=== PATIENT | female | born 1930 | race Caucasian/White ===

== ENCOUNTER 2016-08-05 18:30 | Emergency (ER) | payer MEDICARE, BC ==
--- NOTE | ~2016-08-05 | EKG ---
PATIENT: SIGRID LANGLEY UNIT #: [id number] Ventricular Rate: 72 BPM Atrial Rate: 72 BPM P-R Interval: 142 ms QRS Duration: 92 ms Q-T Interval: 390 ms QTC Calculation(Bezet): 427 ms P [place]: 64 degrees Calculated R [place]: -6 degrees Calculated T [place]: 76 degrees Diagnosis Line: Normal sinus rhythm Diagnosis Line: Normal ECG Diagnosis Line: When compared with ECG of 18-JAN-2012 16:01, Diagnosis Line: No significant change was found Diagnosis Line: Confirmed by TONI MARK MD ([id number]) on Diagnosis Line: 08/11/2016 8:49:37 AM INTERPRETING MD: JAS KNOWLES
--- NOTE | ~2016-08-05 | CT18 ---
[facility]. [facility] A Service of [facility] & [facility] / [facility] RADIOLOGY TEXT RESULTS PATIENT: SIGRID LANGLEY LOCATION: SED : 31 UNIT #: [id number] AGE: [address]: Tony Ren MD SEX: F ORDER DR: [id number] [address] [address] [id number] E MR#: [id number] Acc #: [id number] NAME: SIGRID LANGLEY. : 1930 SEX: F STUDY DATE/TIME: 08/05/2016 19:08 UNIT: SED ROOM: STUDY DESCRIPTION: CT Angio Head Stroke Attending Physician: Tony Ren M.D. Ordering Physician: Tony Ren M.D. Primary Care Physician: No Primary Care Physician MEDICAL IMAGING REPORT This report is preliminary unless electronic signature is present. EXAM CT angiography head/neck. HISTORY Stroke, focal neuro deficit. Dizzy, off balance, confusion x30 minutes prior to arrival. TECHNIQUE CT angiography neck and head performed. Multiple three-dimensional reconstructions performed through the arterial structures. The patient received 100 mL Isovue-370 for contrast enhanced imaging. This CT exam was performed with one or more of the following radiation dose reduction techniques: automatic exposure control, adjustment of mA and/or kV according to patient size, and iterative reconstruction. COMPARISON Comparison to a CT of head performed earlier on the same date. FINDINGS Current examination shows no enhancing intraaxial or extraaxial mass lesion. There is no clear indication of acute regional hypoperfusion. Periventricular hypodensities likely reflecting sequelae of chronic microvascular ischemia. The visualized paranasal sinuses and mastoid air cells show mucosal retention cyst or polyp in the left maxillary sinus. Nasopharyngeal, oropharyngeal, pharyngeal mucosal spaces show an 8 mm somewhat nodular asymmetry along the right paracentral base of tongue. Some peripheral enhancement. Etiology and significance unclear. Correlation with direct visualization recommended. No resulting airway compromise. Larynx, subglottic airway, superior mediastinum unremarkable. Thyroid, submandibular parotid glands unremarkable. Visualized pulmonary parenchyma shows evidence of emphysema and subpleural fibrotic change. No acute-appearing pulmonary parenchymal abnormality. The bony structures show multilevel degenerative change in the cervical STS. [facility] A Service of [facility] & [facility] / [facility] RADIOLOGY TEXT RESULTS PATIENT: SIGRID LANGLEY LOCATION: SED : 31 UNIT #: [id number] AGE: [address]: Tony Ren MD SEX: F ORDER DR: spine. Small posterior central disc bulge suggested C2-C3 without mass effect on cord. Minimal central spinal canal narrowing. Posterior disc osteophyte complex extending to the uncovertebral joints bilaterally at C5-C6. Mild central spinal canal narrowing. Possible anterior cord contact but no cord compression. Moderate narrowing bilateral neural foramina. Probable small posterior central disc osteophyte complex C6-C7. VASCULAR ANATOMY: Visualized pulmonary arteries unremarkable. The visualized thoracic aorta is normal in caliber with no indication of dissection. Great vessel origins are patent. Mild narrowing origin of the right vertebral artery. Tortuosity of the proximal vertebral arteries bilaterally. Minimal atherosclerotic plaque origin left vertebral artery. Vertebral arteries show slight dominance of the right vertebral artery. Both vertebral arteries contribute to the basilar artery which is relatively small in caliber. It gives predominant supply to the left posterior cerebral artery. A left posterior communicating artery is present. Hypoplastic left P1 arterial segment. Left posterior cerebral artery has a persistent origin. P2 and more distal portions appear normal in caliber. No posterior circulation, vascular cutoff, aneurysm or AV shunting. Bilateral common carotid arteries are patent. Bilateral cervical internal carotid arteries show mild atherosclerotic plaque with no evidence of hemodynamically significant luminal narrowing using NASCET criteria. Tortuous distal left cervical internal carotid artery, the cavernous carotid artery shows mild atherosclerotic disease. The bilateral anterior and middle cerebral arteries are patent and there is an anterior communicating artery present. Relatively small caliber right A1 arterial segment, but as noted there is an anterior communicating artery and the right A2 and more distal segments appear normal in caliber. The anterior circulation shows no evidence of vascular cutoff, embolic phenomenon, AV shunting or aneurysm. The major dural venous sinuses appear patent. IMPRESSION 1. There is no evidence of hemodynamically significant luminal narrowing in bilateral cervical internal carotid arteries using NASCET criteria. Mild atherosclerotic disease is present in the proximal internal carotid arteries. 2. Anterior and middle cerebral arteries are patent without evidence of anterior circulation, intracranial aneurysm, embolic phenomenon, vascular cutoff or AV shunting. Mild atherosclerotic disease in the cavernous carotid arteries. 3. Relatively small caliber right A1 arterial segment with anterior communicating artery present and normal caliber right A2 and more distal arterial segments. Middle cerebral arteries unremarkable. 4. The bilateral vertebral arteries are patent throughout their course. There may be mild narrowing at origin of the right vertebral artery. STS. [facility] A Service of [facility] & [facility] / [facility] RADIOLOGY TEXT RESULTS PATIENT: SIGRID LANGLEY LOCATION: [facility] [place] : 31 UNIT #: [id number] AGE: [address]: Tony Ren MD SEX: F ORDER DR: Minimal atherosclerotic plaque at the bilateral vertebral artery origins. Basilar artery patent though somewhat small in caliber. It gives dominant supply to the left vertebral artery which is normal in caliber, and there is a left posterior communicating artery. The right P1 arterial segment is hypoplastic and there is persistent origin of the right posterior cerebral artery. No posterior circulation aneurysm, vascular cutoff, embolic phenomenon or AV shunting seen. 5. There is an 8 mm rim-enhancing hypodense focus in the mucosa/submucosa of the right paracentral base of tongue, direct visualization recommended. Etiology unclear. It is conceivable that this is artifact from coaptation of normal tissues. True neoplastic nodule not excluded. 6. Emphysema and subpleural fibrotic changes in the visualized lungs. 7. Degenerative changes in the spine. See [id number] description in body of report above. 8. Please see complete dictation above for additional incidental findings. Dictated by... Jamaal Fontaine M.D. THIS IS AN ELECTRONICALLY VERIFIED REPORT Jamaal Fontaine M.D. at 08/06/2016 7:58 PM Marquez TD: 08/05/2016 21:32 JOB #: [id number] MEDICAL IMAGING REPORT Page 1 of 1
--- NOTE | ~2016-08-05 | CR72 ---
[facility] A Service of [facility] & [facility] RADIOLOGY TEXT RESULTS PATIENT: SIGRID LANGLEY LOCATION: SED : 31 UNIT #: [id number] AGE: [address]: Tony Ren MD SEX: F ORDER DR: [id number] [address] [address] [id number] E MR#: [id number] Acc #: [id number] NAME: SIGRID LANGLEY : 1930 SEX: F STUDY DATE/TIME: 08/05/2016 19:00 UNIT: SED ROOM: STUDY DESCRIPTION: CR Chest Single View Portable Attending Physician: Tony Ren M.D. Ordering Physician: Tony Ren M.D. Primary Care Physician: No Primary Care Physician MEDICAL IMAGING REPORT This report is preliminary unless electronic signature is present. EXAM Portable chest. HISTORY Ataxia and confusion today. FINDINGS Mild hyperinflation of both lungs. No airspace infiltrates or effusions. Mild interstitial prominence in both lungs suggesting fibrotic scarring. No airspace consolidation. IMPRESSION No acute findings. Emphysema. No active disease in the lungs. Dictated by... Rodney Villatoro M.D. THIS IS AN ELECTRONICALLY VERIFIED REPORT Rodney Villatoro M.D. at 08/06/2016 2:03 PM RALEIGH/gabo TD: 08/05/2016 20:38 JOB #: [id number] MEDICAL IMAGING REPORT Page 1 of 1
--- NOTE | ~2016-08-05 | CT24 ---
[facility] A Service [facility] RADIOLOGY TEXT RESULTS PATIENT: SIGRID LANGLEY LOCATION: SED : 31 UNIT #: [id number] AGE: [address]: Tony Ren MD SEX: F ORDER DR: [id number] [address] [address] [id number] E MR#: [id number] Acc #: [id number] NAME: SIGRID LANGLEY : 1930 SEX: F STUDY DATE/TIME: 08/05/2016 19:08 UNIT: SED ROOM: STUDY DESCRIPTION: CT Angio Neck Stroke Attending Physician: Tony Ren M.D. Ordering Physician: Tony Ren M.D. Primary Care Physician: No Primary Care Physician MEDICAL IMAGING REPORT This report is preliminary unless electronic signature is present. EXAM CT angiography neck (stroke). HISTORY Stroke, focal neuro deficit. Dizzy, off balance, confusion x30 minutes prior to arrival. TECHNIQUE CT angiography neck and head performed. Multiple three-dimensional reconstructions performed through the arterial structures. The patient received 100 mL Isovue-370 for contrast enhanced imaging. This CT exam was performed with one or more of the following radiation dose reduction techniques: automatic exposure control, adjustment of mA and/or kV according to patient size, and iterative reconstruction. COMPARISON Comparison to a CT of head performed earlier on the same date. FINDINGS Please see CT angiography of head/neck for results. Dictated by... Jamaal Fontaine M.D. THIS IS AN ELECTRONICALLY VERIFIED REPORT Jamaal Fontaine M.D. at 08/06/2016 7:52 PM GAVI[place]/gabo TD: 08/05/2016 21:42 [facility] A [facility] RADIOLOGY TEXT RESULTS PATIENT: SIGRID LANGLEY LOCATION: SED : 31 UNIT #: [id number] AGE: [address]: Tony Ren MD SEX: F ORDER DR: CORRIE #: [id number] MEDICAL IMAGING REPORT Page 1 of 1
--- NOTE | ~2016-08-05 | CT72 ---
[facility] [place] [facility] TEXT RESULTS PATIENT: SIGRID LANGLEY LOCATION: SED : 31 UNIT #: [id number] AGE: [address]: Tony Ren MD SEX: F ORDER DR: [id number] [address] [address] [id number] E MR#: [id number] Acc #: [id number] NAME: SIGRID LANGLEY. : 1930 SEX: F STUDY DATE/TIME: 08/05/2016 19:00 UNIT: SED ROOM: STUDY DESCRIPTION: CT Head Wo Contrast Stroke Attending Physician: Tony Ren M.D. Ordering Physician: Tony Ren M.D. Primary Care Physician: No Primary Care Physician MEDICAL IMAGING REPORT This report is preliminary unless electronic signature is present. EXAM CT brain without contrast. HISTORY Dizzy, loss of balance, confusion today. TECHNIQUE This CT exam was performed with one or more of the following radiation dose reduction techniques: automatic exposure control, adjustment of mA and/or kV according to patient size, and iterative reconstruction. FINDINGS CT brain without contrast demonstrates no intracranial hemorrhage, mass or edema. No midline shift or ventricular dilatation or extraaxial fluid collection. Mild chronic ischemic changes in the deep white matter bilaterally. IMPRESSION 1. No acute findings. 2. Mild chronic ischemic changes in the deep white matter bilaterally. 1. Dictated by... Rodney Villatoro M.D. THIS IS AN ELECTRONICALLY VERIFIED REPORT Rodney Villatoro M.D. at 08/06/2016 2:02 PM RALEIGH/gabo TD: 08/05/2016 20:34 JOB #: [id number] MEDICAL IMAGING REPORT [facility] A [facility] RADIOLOGY TEXT RESULTS PATIENT: SIGRID LANGLEY LOCATION: SED : 31 UNIT #: [id number] AGE: [address]: Tony Ren MD SEX: F ORDER DR: Page 1 of 1
[~2016-08-05 18:30] MED LIST: ASPIRIN81 M1 PO; ASPIRIN81 M2 PO; HYDROCODON-ACE1 EAC7 PO; NO MEDICATIONS; PERCOCET 5-3251 TAB PO; ZOFRAN ODT4 MG/UDTAB PO
[2016-08-05 18:55] LABS: BASOPHIL# 0.1 X10e3 (0-0.3); BASOPHIL% 1.3 % (0-2.5); EOSINOPHIL# 0.1 X10e3 (0-0.7); EOSINOPHIL% 1.6 % (0.0-7.0); HEMATOCRIT 34.9 % (35.0-45.0); HEMOGLOBIN 11.8 gm/dL (12.0-16.0); LYMPHOCYTE# 1.7 X10e3 (1.0-3.5); LYMPHOCYTE% 27.1 % (17.0-45.0); MEAN CELL VOLUME 84.1 FL (83-96); MEAN CORPUSCULAR HEMOGLOBIN 28.5 PG (28-34); MEAN CORPUSCULAR HGB CONC 33.9 g/dL (30-36); MEAN PLATELET VOLUME 7.3 FL (6.5-11.5); MONOCYTE# 0.6 X10e3 (0-1.0); MONOCYTE% 9.8 % (3.0-12.0); NEUTROPHIL# 3.7 X10e3 (1.5-7.1); NEUTROPHIL% 60.2 % (40-75); PLATELET COUNT 271 X10e3 (140-420); RED BLOOD COUNT 4.15 X10e (3.90-5.30); WHITE BLOOD COUNT 6.1 X10e3 (4.0-10.5)
[2016-08-05 18:58] LABS: DIFF IND NO
[2016-08-05 19:04] LABS: INR 0.9; PROTHROMBIN TIME (PATIENT) 10.1 SECONDS (9.5-12.4)
[2016-08-05 19:09] LABS: POC - CKMB <1.0 ng/mL (0.0-7.9); POC - TROPONIN <0.05 ng/mL (<=0.05)
[2016-08-05 19:11] LABS: PARTIAL THROMBOPLASTIN TIME 28.3 SECONDS (25.6-38.1)
[2016-08-05 19:13] LABS: ALBUMIN SERUM 4.4 g/dL (3.5-5.0); BILIRUBIN, DIRECT 0.1 mg/dL (0.0-0.2); BILIRUBIN,INDIRECT 0.3 mg/dL (0.0-0.9); BILIRUBIN,TOTAL 0.4 mg/dL (0.2-2.0); BUN/CREATININE RATIO 24.28; CREATININE SERUM 0.7 mg/dL (0.6-1.4); GLOM FILT RATE Estimated 79.6 mL/min (>60); POTASSIUM 3.5 mmol/L (3.5-5.1); PROTEIN TOTAL SERUM 7.1 g/dL (6.0-8.3)
[2016-08-05 19:20] LABS: POC - CREATININE 0.76 mg/dL (0.44-1.03); POC - GFR >60.0 mL/min (>60)
== END 2016-08-05 20:28 | disposition hospice, home (50) ==
LOC: SED 18:30
PROVIDERS: Emergency Medicine
DX: R27.8 Other lack of coordination (principal); R42 Dizziness and giddiness; I25.10 Atherosclerotic heart disease of native coronary artery without angina pectoris
CPT/HCPCS: 36415; 70450; 70496; 70498; 71010; 80048; 80076; 82553; 82565; 82947; 84484; 85025; 85610; 85730; 93005; 99291; Q9967